=== PATIENT | female | born 1960 ===

== ENCOUNTER → 2024-05-17 11:23 | Outpatient (REF) | payer BC, SELFPAY | LOC: HWRAD 11:23 | PROVIDERS: ATTENDING PHYSICIAN Physician Assistant; FAMILY PHYSICIAN Family Medicine | DX: J32.0 Chronic maxillary sinusitis (principal) | CPT/HCPCS: 70486 ==

== ENCOUNTER 2024-06-17 06:15 | Day surgery (SDC) | payer BC, SELFPAY ==
[2024-06-12 09:35] LABS: Blood Urea Nitrogen 21 mg/dl (7-17); Calcium 9.4 mg/dl (8.4-10.2); Carbon Dioxide 29 mmol/L (22-30); Chloride 98 mmol/L (98-107); Glucose 110 mg/dl (70-99); Sodium 139 mmol/L (135-145); eGFR > 60.00
[2024-06-12 13:04] VITALS: BMI 17.0
[2024-06-17] VITALS (7 sets, daily range): BP systolic 104–126; BP diastolic 56–72; BMI 17.0
[2024-06-17] MEDS: NORMOSOL-R/PLASMALYTE-A 1000 IV (06:41)
[2024-06-17 06:42] LABS: Glucose - Point of Care 157 mg/dl (70-99)
[2024-06-17 08:49] LABS: Glucose - Point of Care 131 mg/dl (70-99)
== END 2024-06-17 10:02 | disposition home or self-care (01) ==
LOC: SDS 06:15
PROVIDERS: ATTENDING PHYSICIAN Otolaryngology; FAMILY PHYSICIAN Family Medicine
DX: J34.2 Deviated nasal septum (principal); J32.9 Chronic sinusitis, unspecified
CPT/HCPCS: 31276; 30520; 31254; 31256; 88304; 88311; 88312; 36415; 80048; 82962; 87070; 87075; 87205; 93005